=== PATIENT | female | born 1990 | race Caucasian/White ===

== ENCOUNTER 2018-03-20 19:04 | Emergency (ER) | payer SELFPAY ==
[~2018-03-20] VITALS: Ht 162.6 cm; Wt 50.0 kg
[~2018-03-20 19:04] MED LIST: BACT800T5 PO
[2018-03-20 19:26] VITALS: BP 123/58; PULSE 71; RESP 18; TEMP 98.4; O2SAT 99
== END 2018-03-20 22:01 | disposition left against medical advice (07) ==
LOC: NED 19:04
DX: R39.9 Unspecified symptoms and signs involving the genitourinary system (principal)
CPT/HCPCS: 99281

== ENCOUNTER 2018-03-21 04:28 | Emergency (ER) | payer SELFPAY ==
[~2018-03-21] VITALS: Ht 162.6 cm; Wt 52.4 kg
[2018-03-21 04:33] VITALS: BP 115/75; PULSE 69; RESP 16; TEMP 98.2; O2SAT 100
[2018-03-21 04:56] VITALS: BP 115/75; PULSE 69; RESP 16; TEMP 98.2; O2SAT 100
--- NOTE | 2018-03-21 05:03 | PD ---
HPI Chief Complaint: Time Seen by Provider: 04:51 Travel History International Travel<30 days: No Contact w/Intl Traveler<30days: No Traveled to known affect area: No History of Present Illness HPI 27-year-old female presents to the emergency department for complaint of vaginal bleeding and spotting. Patient states symptoms have been present 3 days with increasing quantity and frequency today. Patient reports that she is . Patient is 2 para 0 AB 1. Patient states that her last menstrual period was 01/30/18 and normal for her. Patient went to crisis center and had a positive test. Patient is not yet seen a conche loader and unloader has not had a pelvic exam or ultrasound. Patient states that she is using a pad and has noticed increasing frequency and quantity of blood but not bleeding a pad per hour. Patient denies any pain. Patient denies any past medical history of significance according to her and denies any tobacco use alcohol use or substance use. Patient is currently taking vitamins. Patient is unable to identify exacerbating or alleviating factors. PFSH Past Medical History Narrative Medical Review of nurse's notes and medical records HPV MRSA prior substance use Anxiety: No Depression: No Cancer: No Cardiovascular Problems: No Diminished Hearing: No Endocrine: No Genitourinary: No Immune Disorder: No Musculoskeletal: Yes Neurologic: No Psychiatric: No Reproductive: No Respiratory: No Integumentary: Yes (HX MRSA) : 1 Para: 0 Past Surgical History Other Surgery: No Social History Alcohol Use: No Tobacco Use: No Substance Use: No (HX OF IV DRUG ) Allergies-Medications (Allergen,Severity, Reaction): Coded Allergies: No Known Allergies (Verified Adverse Reaction, Unknown, 03/20/18) Reported Meds & Prescriptions Reported Meds & Active Scripts Active No Active Prescriptions or Reported Medications Review of Systems Except as stated in HPI: all other systems reviewed are Neg General / Constitutional: No: Fever, Chills HENT: No: Congestion Cardiovascular: No: Chest Pain or Discomfort Respiratory: No: Shortness of Breath Gastrointestinal: No: Nausea, Vomiting, Abdominal Pain Genitourinary: Positive: Frequency, Vaginal Bleeding, No: Dysuria, Pelvic Pain Musculoskeletal: No: Myalgias, Arthralgias Skin: No Rash Neurologic: No: Weakness, Dizziness, Syncope Psychiatric: No: Anxiety Hematologic/Lymphatic: No: Easy Bruising Physical Exam Narrative GENERAL: Well-developed well-nourished female no acute distress no respiratory distress SKIN: Warm and dry. HEAD: Normocephalic. EYES: No scleral icterus. No injection or drainage. NECK: Supple, trachea midline. No JVD or lymphadenopathy. CARDIOVASCULAR: Regular rate and rhythm without murmurs, gallops, or rubs. RESPIRATORY: Breath sounds equal bilaterally. No accessory muscle use. GASTROINTESTINAL: Abdomen soft, non-tender, nondistended. Pelvic exam: Normal external exam no redness induration or lesions: Speculum exam small amount of dark blood no clots no tissue cervical loss is closed; bimanual exam no adnexal mass tenderness or cervical motion tenderness mild uterine enlargement. MUSCULOSKELETAL: No cyanosis, or edema. BACK: Nontender without obvious deformity. No CVA tenderness. Data Data Last Documented VS Vital Signs Date Time Temp Pulse Resp B/P (MAP) Pulse Ox O2 Delivery O2 Flow Rate FiO2 03/21/18 04:56 98.2 69 16 115/75 (88) 100 Orders Orders Beta Hcg (Quant/Titer) (03/21/18 04:51) Complete Blood Count With Diff (03/21/18 04:51) Basic Metabolic Panel (Bmp) (03/21/18 04:51) Complete Rh (03/21/18 04:51) Us Pelvis (Ques Preg/Ectopic) (03/21/18 ) Urinalysis - C+S If Indicated (03/21/18 04:51) Iv Access Insert/Monitor (03/21/18 04:51) Ed Urine Pregnancytest Poc (03/21/18 04:51) Resp Request For Service (03/21/18 ) Labs Laboratory Tests Test 03/21/18 05:00 03/21/18 06:20 Urine Color YELLOW Urine Turbidity CLEAR Urine pH 6.0 Urine Specific [place] GREATER/EQUAL 1.030 Urine Protein NEG mg/dL Urine Glucose (UA) NEG mg/dL Urine Ketones NEG mg/dL Urine Occult Blood NEG Urine Nitrite NEG Urine Bilirubin NEG Urine Urobilinogen 0.2 MG/DL Urine Leukocyte Esterase NEG Urine RBC 0-3 /hpf Urine WBC 0-2 /hpf Urine Squamous Epithelial Cells 0-5 /hpf Urine Bacteria NONE /hpf Microscopic Urinalysis Comment CULT NOT INDICATED White Blood Count 7.1 TH/MM3 Red Blood Count 3.91 MIL/MM3 Hemoglobin 11.9 GM/DL Hematocrit 36.0 % Mean Corpuscular Volume 92.3 FL Mean Corpuscular Hemoglobin 30.4 PG Mean Corpuscular Hemoglobin Concent 32.9 % Red Cell Distribution Width 12.6 % Platelet Count 226 TH/MM3 Mean Platelet Volume 7.7 FL Neutrophils (%) (Auto) 67.5 % Lymphocytes (%) (Auto) 25.0 % Monocytes (%) (Auto) 5.3 % Eosinophils (%) (Auto) 1.5 % Basophils (%) (Auto) 0.7 % Neutrophils # (Auto) 4.8 TH/MM3 Lymphocytes # (Auto) 1.8 TH/MM3 Monocytes # (Auto) 0.4 TH/MM3 Eosinophils # (Auto) 0.1 TH/MM3 Basophils # (Auto) 0.0 TH/MM3 CBC Comment DIFF FINAL Differential Comment Blood Urea Nitrogen 12 MG/DL Creatinine 0.58 MG/DL Random Glucose 96 MG/DL Calcium Level 8.0 MG/DL Sodium Level 138 MEQ/L Potassium Level 4.0 MEQ/L Chloride Level 109 MEQ/L Carbon Dioxide Level 22.6 MEQ/L Anion Gap 6 MEQ/L Estimat Glomerular Filtration Rate 124 ML/MIN Human Chorionic Gonadotropin, Quant 263 MIU/ML MDM Medical Decision Making Medical Screen Exam Complete: Yes Emergency Medical Condition: Yes Medical Record Reviewed: Yes Differential Diagnosis ectopic subchorionic hemorrhage threatened inevitable versus complete spontaneous AB Narrative Course IV access obtained specimens collected and sent for resulting ultrasound ordered to evaluate for ectopic Difficult IV access unsuccessful with peripheral sticks and ultrasound bedside IV access; respiratory request for bedside arterial stick for specimen collection; urinalysis is normal; ultrasound is pending At 7:00 AM care signed over to Dr. Marquez Scripts No Active Prescriptions or Reported Meds Steph Franklin MD Mar 21, 2018 05:03
[2018-03-21 05:38] LABS: BILIRUBIN, URINE NEG (NEG); BLOOD, URINE NEG (NEG); GLUCOSE,URINE NEG (NEG); KETONE, URINE NEG (NEG); NITRITE,URINE NEG (NEG); URINE COLOR YELLOW (YELLW/STRAW); URINE LEUKOCYTE ESTERASE NEG (NEG)
[2018-03-21 05:52] LABS: RBC, URINE 0-3 /hpf (0-3); SQUAMOUS EPITHELIAL CELL URINE 0-5 /hpf (0-5); WBC, URINE 0-2 /hpf (0-5)
[2018-03-21 06:35] LABS: AUTOMATED NEUTROPHIL # 4.8 TH/MM3 (1.8-7.7); BASOPHIL % 0.7 % (0.0-2.0); EOSINOPHIL # 0.1 TH/MM3 (0-0.4); EOSINOPHIL % 1.5 % (0.0-4.0); HEMOGLOBIN 11.9 GM/DL (11.6-15.3); LYMPHOCYTE # 1.8 TH/MM3 (1.0-4.8); MEAN CELL VOLUME 92.3 FL (80.0-100.0); MEAN CORPUSCULAR HEMOGLOBIN 30.4 PG (27.0-34.0); MEAN CORPUSCULAR HGB CONC 32.9 % (32.0-36.0); MEAN PLATELET VOLUME 7.7 FL (7.0-11.0); MONO % 5.3 % (0.0-8.0); MONOCYTE # 0.4 TH/MM3 (0-0.9); NEUT % 67.5 % (16.0-70.0); PLATELET COUNT 226 TH/MM3 (150-450); RED BLOOD COUNT 3.91 MIL/MM3 (4.00-5.30); RED CELL DISTRIBUTION WIDTH 12.6 % (11.6-17.2); WHITE BLOOD COUNT 7.1 TH/MM3 (4.0-11.0)
[2018-03-21 06:47] LABS: BICARBONATE 22.6 MEQ/L (21.0-32.0)
[2018-03-21 06:50] LABS: CREATININE 0.58 MG/DL (0.50-1.00)
--- NOTE | 2018-03-21 07:27 | RADRPT ---
EXAM DATE: 03/21/2018 7:15 AM EDT AGE/SEX: 27 years / Female INDICATIONS: Bleeding with . CLINICAL DATA: This is the patient's initial encounter. Patient reports that signs and symptoms have been present for 3 days and indicates a pain score of 0/10. MEDICAL/SURGICAL HISTORY: . Umbilical hernia repair. COMPARISON: No prior exams available for comparison. MEASUREMENTS: Uterus:__8.7 x 5.9 x 3.7 cm Endometrial Stripe:__17 mm Right Ovary:__ 3.8 x 3.8 x 2.0 cm Left Ovary:__ 2.9 x 2.0 x 1.4 cm FINDINGS: Uterus: The myometrium has homogeneous echotexture without mass. No evidence of an intrauterine pre gnancy. Endometrial stripe is thickened to 17 mm. Right Ovary: Probable corpus luteum cyst and small follicular cysts present measuring less than 2 cm . Left Ovary: Unremarkable Other: No free fluid. CONCLUSION: 1. No sonographic evidence for intrauterine . Probable corpus luteum cyst and small follicu lar cyst in the right ovary. Electronically signed by: Mani Harris MD 03/21/2018 7:25 AM EDT
--- NOTE | 2018-03-21 07:57 | PD ---
Physical Exam Date Seen by Provider: Mar 21, 2018 Time Seen by Provider: 07:52 Narrative This 27-year-old female at presented with complaint of vaginal bleeding. Her last period was January 30. She has been once before and had a miscarriage. She is not having abdominal pain. She was seen initially by Dr. Franklin who found the office to be closed. A beta titer is 238. Ultrasound of the pelvis does not show an intrauterine gestation. She is noted to have a cyst on the right ovary. There is no free fluid. Patient appears comfortable at this time. I have explained to her that we have not ruled out an ectopic . Data Data Last Documented VS Vital Signs Date Time Temp Pulse Resp B/P (MAP) Pulse Ox O2 Delivery O2 Flow Rate FiO2 03/21/18 04:56 98.2 69 16 115/75 (88) 100 Orders Orders Beta Hcg (Quant/Titer) (03/21/18 04:51) Complete Blood Count With Diff (03/21/18 04:51) Basic Metabolic Panel (Bmp) (03/21/18 04:51) Complete Rh (03/21/18 04:51) Urinalysis - C+S If Indicated (03/21/18 04:51) Iv Access Insert/Monitor (03/21/18 04:51) Ed Urine Pregnancytest Poc (03/21/18 04:51) Resp Request For Service (03/21/18 ) Us Pelvis (Ques Pr/Ect)W Trans (03/21/18 ) Labs Laboratory Tests Test 03/21/18 05:00 03/21/18 06:20 Urine Color YELLOW Urine Turbidity CLEAR Urine pH 6.0 Urine Specific [place] GREATER/EQUAL 1.030 Urine Protein NEG mg/dL Urine Glucose (UA) NEG mg/dL Urine Ketones NEG mg/dL Urine Occult Blood NEG Urine Nitrite NEG Urine Bilirubin NEG Urine Urobilinogen 0.2 MG/DL Urine Leukocyte Esterase NEG Urine RBC 0-3 /hpf Urine WBC 0-2 /hpf Urine Squamous Epithelial Cells 0-5 /hpf Urine Bacteria NONE /hpf Microscopic Urinalysis Comment CULT NOT INDICATED White Blood Count 7.1 TH/MM3 Red Blood Count 3.91 MIL/MM3 Hemoglobin 11.9 GM/DL Hematocrit 36.0 % Mean Corpuscular Volume 92.3 FL Mean Corpuscular Hemoglobin 30.4 PG Mean Corpuscular Hemoglobin Concent 32.9 % Red Cell Distribution Width 12.6 % Platelet Count 226 TH/MM3 Mean Platelet Volume 7.7 FL Neutrophils (%) (Auto) 67.5 % Lymphocytes (%) (Auto) 25.0 % Monocytes (%) (Auto) 5.3 % Eosinophils (%) (Auto) 1.5 % Basophils (%) (Auto) 0.7 % Neutrophils # (Auto) 4.8 TH/MM3 Lymphocytes # (Auto) 1.8 TH/MM3 Monocytes # (Auto) 0.4 TH/MM3 Eosinophils # (Auto) 0.1 TH/MM3 Basophils # (Auto) 0.0 TH/MM3 CBC Comment DIFF FINAL Differential Comment Blood Urea Nitrogen 12 MG/DL Creatinine 0.58 MG/DL Random Glucose 96 MG/DL Calcium Level 8.0 MG/DL Sodium Level 138 MEQ/L Potassium Level 4.0 MEQ/L Chloride Level 109 MEQ/L Carbon Dioxide Level 22.6 MEQ/L Anion Gap 6 MEQ/L Estimat Glomerular Filtration Rate 124 ML/MIN Human Chorionic Gonadotropin, Quant 263 MIU/ML [facility] Medical Record Reviewed: No Supervised Visit with COREY: No Differential Diagnosis Differential includes threatened AB, incomplete AB, intrauterine , ectopic Narrative Course Beta titer is 238. Ultrasound does not show intrauterine gestation. At this point it is not clear what the diagnosis is I have spent some time with the patient and told her she needs to be rechecked in 3 days. I have stressed that we have not ruled out an ectopic and if she has pain or weakness she needs to be evaluated immediately otherwise she should definitely be rechecked in 2 days to recheck her titer. Diagnosis Primary Impression: Additional Instruction: You must be rechecked in 2 -3 days to have years titer rechecked. If you have pain or heavy bleeding you should be rechecked immediately Scripts No Active Prescriptions or Reported Meds Disposition: 01 DISCHARGE HOME Condition: Stable Perez Vann MD Mar 21, 2018 07:57
== END 2018-03-21 08:07 | disposition home or self-care (01) ==
LOC: PHED 04:28
DX: O20.9 Hemorrhage in early pregnancy, unspecified (principal); O34.80 Maternal care for other abnormalities of pelvic organs, unspecified trimester
CPT/HCPCS: 76700; 76817; 80048; 81001; 84702; 84703; 85025; 86901; 99284